=== PATIENT | female | born 1970 | race Two or more races ===

== ENCOUNTER 2025-08-27 13:03 | Emergency (ER) | payer OTHER ==
[~2025-08-27] VITALS: Ht 170.2 cm; Wt 77.1 kg
[~2025-08-27 13:03] MED LIST: INTESTINEX1 CAP PO; LISINOPRIL10 MG PO; NORVASC5 MG
[2025-08-27] MEDS ORDERED: NORVASC10 MG PO (13:29)
[2025-08-27] MEDS ORDERED: QUESTRAN POWDE378 GM PO (13:29)
[2025-08-27] MEDS ORDERED: ZESTRIL40 M1 PO (13:29)
[2025-08-27] MEDS ORDERED: FAMOTIDINE/PF 20 MG/2 ML VIAL IV ONE (15:00)
[2025-08-27] MEDS ORDERED: 0.9 % SODIUM CHLORIDE 1,000 ML IV ONE (15:00)
[2025-08-27] MEDS ORDERED: KETOROLAC TROMETHAMINE 30 MG VIAL IV ONE (15:00)
[2025-08-27] MEDS ORDERED: ONDANSETRON HCL 2 MG/ML VIAL IV ONE (15:00)
[2025-08-27] MEDS ORDERED: LOPERAMIDE HCL 2 MG CAPSULE PO ONE ×2 (15:00→15:11)
[2025-08-27] MEDS ORDERED: KETOROLAC TROMETHAMINE 30 MG VIAL ONE (15:11)
[2025-08-27] MEDS ORDERED: ONDANSETRON HCL 2 MG/ML VIAL ONE (15:12)
[2025-08-27] MEDS ORDERED: FAMOTIDINE/PF 20 MG/2 ML VIAL ONE (15:12)
[2025-08-27 16:21] LABS: BASO % 0.3 % (0.1-1.2); EOS # 0.03 (0.04-0.54); EOS % 0.2 % (0.7-7.0); LYMPH # 0.49 (1.18-3.74); LYMPH % 3.8 % (19.3-53.1); MEAN PLATELET VOLUME 9.90 fl (9.4-12.4); MONO # 0.45 (0.24-0.82); MONO % 3.5 % (4.7-12.5); NEUT # 11.78 (1.56-6.13); NEUT % 91.8 % (34.0-71.1); RED CELL DISTRIBUTION WIDTH 13.0 % (11.6-14.4)
[2025-08-27 16:27] LABS: ERYTHROCYTE SEDIMENTATION RATE 24 mm/hr (0-30)
[2025-08-27 16:48] LABS: INR 1.0
[2025-08-27 16:52] LABS: ALT/SGPT 66.0 U/L (12-78); AST/SGOT 34.0 U/L (15-37); BILIRUBIN TOTAL 0.78 mg/dL (0.3-1.2); BUN CREA RATIO 31.0 (7.0-25.0); CREATININE SERUM 0.58 mg/dL (0.55-1.02); GFR 107.54; GLOBULINA 3.7 G/DL (2.4-3.5); GLUCOSE FASTING 130.0 mg/dL (65-100); OSMOLALITY SERUM 281.0 MOSM/KG (275-295)
[2025-08-27 19:00] LABS: URINE APPEARANCE Turbid; URINE BILIRRUBIN Negative (NEGATIVE); URINE BLOOD Small; URINE COLOR Dark Yellow; URINE GLUCOSE Negative (NEGATIVE); URINE KETONE Trace (NEGATIVE); URINE LEUKOCYTE Small; URINE NITRATE Negative; URINE PROTEIN 30 (NEGATIVE); URINE UROBILINOGEN 0.2 E.U./dl
[2025-08-27 19:03] LABS: URINE BACTERIA 1057.1 uL (0.0-1933); URINE CAST 1.75 uL (0.0-1.40); URINE EPITHELIAL CELLS 64.9 uL (0.0-38.8); URINE RBC 29.4 uL (0.0-20.8); URINE WBC 60.6 uL (0.0-23.2)
[2025-08-27 19:23] LABS: URINE CRYSTALS MANY /HPF
[2025-08-27] MEDS ORDERED: CIPRO500 MG PO (19:37)
[2025-08-27] MEDS ORDERED: LEVSIN/SL0.125 MG SL (19:37)
[2025-08-27] MEDS ORDERED: ZOFRAN8 MG PO (19:37)
[2025-08-27] MEDS ORDERED: PEPCID AC20 MG PO (19:37)
[2025-08-27] MEDS ORDERED: PROBIOTIC1 EAC2 PO (19:37)
[2025-08-27] MEDS ORDERED: FAMOTIDINE/PF 20 MG/2 ML VIAL IV PUSH ONE (19:45)
[2025-08-27] MEDS ORDERED: HYOSCYAMINE SULFATE 0.125 MG TAB.SUBL SL ONE (19:45)
== END 2025-08-27 20:33 | disposition home or self-care (01) ==
LOC: ER 13:04
DX: K52.89 Other specified noninfective gastroenteritis and colitis (principal); K76.0 Fatty (change of) liver, not elsewhere classified; I10 Essential (primary) hypertension; Z88.8 Allergy status to other drugs, medicaments and biological substances